=== PATIENT | female | born 1980 | race African-American/Black ===

== ENCOUNTER 2016-05-26 09:54 | Emergency (ER) | payer OTHER ==
--- NOTE | 2016-05-26 10:23 | PROVIDER DOCUMENTATION ---
HPI-Musculoskeletal Pain/Inj - GENERAL Chief Complaint: Extremity Pain Stated Complaint: EXTREMITY PAIN Time Seen by Provider: 05/26/16 10:23 - HX OF PRESENT ILLNESS-MUSKULOSKELTAL Nature of Presenting Problem: Pt reports she drove to [place] a few days ago and developed left posterior calf pain soon after. Continues to have calf pain and tenderness described as muscle aches like from a muscle cramp but denies cramps or known injury. Denies swelling, SOB, chest pain. Review of Systems - Adult - REVIEW OF SYSTEMS - ADULT Constitutional: denies: chills, fever, fatique Eyes: reports: no symptoms reported Ears, Nose, Mouth & Throat: reports: no symptoms reported Cardiovascular: denies: chest pain, edema, orthopnea, palpitations Respiratory: denies: dyspnea on exertion, hemoptysis, shortness of breath Gastrointestinal: reports: no symptoms reported Musculoskeletal: reports: see HPI Integumentary: reports: no symptoms reported Neurological: denies: numbness, paresthesia Hematologic/Lymphatic: denies: blood clots, easy bruising, swollen lymph nodes All Other Systems: Reviewed and Negative Past History - Adult - PAST MEDICAL HISTORY-ADULT Review of Records: reports: Old Records Reviewed, Nursing Assessment Review, Medications Reviewed Major Childhood Illnesses: reports: denies history Other Conditions: denies: other cancer - FAMILY HISTORY Family History: reviewed, not pertinent - SOCIAL HISTORY Smoking: non-smoker Substance Use: none/never Alcohol Use Frequency: never Living Situation: family Physical Exam-Injury Related - Physical Exam-Injury Related Initial Vital Signs Reviewed: Yes General Appearance: appears well, alert, no apparent distress, anxious. negative: obese Eyes: PERRL/EOMI, pink conjunctivae Head, Ears, Nose, Mouth & Throat: normocephalic/atraumatic, moist mucous membranes Neck: non-tender, full range of motion, supple Respiratory: chest non-tender, lungs clear, normal breath sounds Cardiovascular: regular rate, rhythm, no edema Back Exam: normal inspection, no CVA tenderness, no vertebral tenderness Extremity: normal inspection, no pedal edema, normal capillary refill, tenderness (left posterior calf) Integumentary: normal color, warm/dry, blanching Neurologic: grossly normal, no motor/sensory deficits Psych/Mental Status: normal thought content, normal thought process - Glascow Coma Score Best Eye Response (Jose Luis): (4) open spontaneously Best Verbal Response (Ola): (5) oriented Best Motor Response (Jose Luis): (6) obeys commands Jose Luis Total: 15 Progress - PLAN OF CARE/RESULTS Progress/Plan/Lab Results: Vital Signs Temp Pulse Resp BP Pulse Ox 05/26/16 10:16 97.7 F 73 18 127/72 100 neomycin [Neomycin] Allergy (Verified 05/26/16 10:19) RASH Mometasone/Formoterol INH [Dulera 100 Mcg/5 Mcg Inhaler] 2 puff INH RTBID Laboratory 05/26/16 12:17 D-Dimer 0.77 H Orders Category Date Time Status D-DIMER PL [COAG] Stat Lab 05/26/16 12:17 Completed Venous U/S Left Leg [CV] Stat Ther 05/26/16 12:59 Completed Venous doppler was negative for DVT. Apologized to pt for delay in results from doppler. Pt voiced understanding. Departure - Departure Time of Disposition Order: 15:14 DIAGNOSIS: Leg pain, posterior Qualifiers: Laterality: left Qualified Code(s): M79.605 - Pain in left leg Disposition: HOME 01 Certified Medical Emergency: Emergent Condition: Good Additional Instructions: ED Follow Up Instructions: You have been treated by a care provider in the Emergency Department. These instructions are being provided to you so you can have an understanding of how to care for yourself upon discharge. Upon discharge from the Emergency Department, you are responsible for making arrangements for follow-up care by a physician of your choice. Take all prescribed medications as directed. Return to the Emergency Department immediately for any new or worsening symptoms. You may call the Physician Referral phone number at [phone] to obtain a list of Physicians who are taking new patients. Prescriptions: Methocarbamol 500 mg PO BID #20 tablet Hydrocodone/APAP 7.5 mg/325 mg [Poyen-7.5] 1 each PO Q6H PRN PRN #10 tablet PRN Reason: Pain Attestation - Physician/ TAVARES Attestation Patient care was provided by Advanced Practice Provider:: Yes Advanced Practice Provider:: Kelsey Vazquez Advanced Practice Provider documentation review:: The Mid-level provider documentation, treatment plan and medical decision making was reviewed by the physician who agrees with all treatment and medical decision making by the MLP.
[2016-05-26 15:36] VITALS: BP 118/71
--- NOTE | 2016-05-27 07:09 | Extremity Venous Study ---
PROCEDURE NAME: Venous U/S Left Leg - 05/26/2016 LEFT LOWER EXTREMITY VENOUS DOPPLER ULTRASOUND: FINDINGS: There is good flow and compressibility in the veins of the left lower extremity. No thrombus. Normal augmentation. IMPRESSION: No evidence of deep venous thrombosis in the left lower extremity.
== END 2016-05-26 15:35 | disposition home or self-care (01) ==
LOC: P.ED 09:54
DX: M79.605 Pain in left leg (principal); Z79.51 Long term (current) use of inhaled steroids
CPT/HCPCS: 36415; 85379; 93971; 99283